=== PATIENT | male | born 1995 | race African-American/Black ===

== ENCOUNTER 2016-09-21 03:13 | Emergency (ER) | payer OTHER ==
[2016-09-21 03:24] VITALS: BP 132/78
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
[2016-09-21] MEDS ORDERED: IBUPROFEN 800 MG TABLET PO ONE (04:23)
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
== END 2016-09-21 04:24 | disposition home or self-care (01) ==
LOC: ER 03:13
DX: S20.212A Contusion of left front wall of thorax, initial encounter (principal); R07.81 Pleurodynia; W51.XXXA Accidental striking against or bumped into by another person, initial encounter; Z87.891 Personal history of nicotine dependence
CPT/HCPCS: 99283